=== PATIENT | female | born 1975 | race Caucasian/White ===

== ENCOUNTER 2017-11-02 10:51 | Emergency (ER) | payer MEDICAID ==
[~2017-11-02] VITALS: Ht 167.6 cm; Wt 93.7 kg
[~2017-11-02 10:51] MED LIST: FLO0.4C PO; HYDR-3965 PO; MACROBID PO; PENI500T2 PO; PHEN-873 PO
[2017-11-02 10:56] VITALS: BP 125/81
[2017-11-02] MEDS ORDERED: ondansetron 4mg rapidly disintigrating tab PO ONE (13:20)
[2017-11-02] MEDS ORDERED: HYDROcodone/acetaminophen 10/325mg tab PO ONE (13:20)
[2017-11-02] MEDS ORDERED: AMOX-580 PO (13:22)
[2017-11-02] MEDS ORDERED: CIPR10DR LEFT EAR (13:22)
== END 2017-11-02 13:40 | disposition home or self-care (01) ==
LOC: ER 10:52
DX: H60.502 Unspecified acute noninfective otitis externa, left ear (principal); H65.92 Unspecified nonsuppurative otitis media, left ear; G89.29 Other chronic pain; Z79.899 Other long term (current) drug therapy
CPT/HCPCS: 87070; 87077; 87186; 99284

== ENCOUNTER 2025-10-18 15:00 | Emergency (ER) | payer MEDICAID ==
[~2025-10-18] VITALS: Ht 162.6 cm; Wt 73.2 kg
[~2025-10-18 15:00] MED LIST changes: -FLO0.4C PO; +PHEN-786 PO; -PHEN-873 PO; +TAMS-55 PO
--- NOTE | 2025-10-18 16:15 | Physician Documentation ---
History of Present Illness Chief Complaint: Abdominal Pain Stated Complaint: UPPER ABD PAIN Primary Medical Doctor: none HPI This is a 50-year-old female who presents with three days of epigastric pain worse after eating without nausea, vomiting, diarrhea, or fever. Patient reports that she is on a GLP-1. Reports that she does not have her gallbladder and does not have her appendix. Patient reports no other acute symptoms or concerns. Medication Reconciliation Allergies: Coded Allergies: No Known Allergies (Unverified , 07/26/10) Scheduled Cephalexin*Monohydrate* (Keflex*), 1 CAP PO BID Nitrofurantoin/Nitrofuran Mac* (Macrobid*), 100 MG PO BID Penicillin V Potassium* (Penicillin VK*), 500 MG PO Q6H Phenazopyridine Hcl (Pyridium tablet), 2 TAB PO TID Tamsulosin Hcl* (Flomax*), 0.4 MG PO DAILY Scheduled PRN Hydrocodone Bit/Acetaminophen 5/325 MG ([place] 5/325 MG), 1 TAB PO Q4H PRN for moderate or severe pain Past Medical History Past Medical History: Arthritis, Chronic Back Pain, Anxiety Past Surgical History: appendectomy, cholecystectomy Alcohol Use: None Drug Use: none Lives with: Mother Lives In: Home Occupation: unemployed Review of Systems ROS As stated above in the HPI, otherwise all systems are reviewed and negative. Physical Exam Vital Signs: Temperature: 96.3, Source: Temporal, Heart Rate: 71, Respiratory Rate: 18, BP: 144/90, Pulse Oximetry: 98, Weight: 73.200 Oxygen Flow Rate: 0 Physical Exam VITALS: Reviewed and as above. GENERAL: Alert, nontoxic appearing, no apparent distress. HEENT: RESPIRATORY: No increased work of breathing, no respiratory distress, speaking in full clear sentences CHEST: CV: BACK: GI: MUSCULOSKELETAL: SKIN: NEURO: PSYCH: Progress Results/Orders Results/Orders Vital Signs 10/18/25 15:11 Temp 96.3 Pulse 71 Resp 18 B/P (MAP) 144/90 Pulse Ox 98 O2 Flow Rate 0 Medical Decision Making Additional information obtaine: N/A Findings MSE performed in triage and patient returned to ED lobby by nursing staff to aw ait available ED room. Examination history and diagnostic labs and imaging consistent with constipation without obvious obstruction and urinary tract infection likely responsible for suprapubic pain. We will begin outpatient antibiotic. Shared decision-making regarding MiraLax versus Mag citrate and daily Colace. Patient will continue with her medication assisted therapy and Re listor. Safely discharged in the emergency department. Differential Dx:Considerations: Bowel obstruction, Cholangitis, Cholelithasis, Constipation, Diverticular disease, Gastritis/PUD, Gastroenteritis, Inflammatory BD, Ischemic bowel, Pancreatitis, Urinary obstruction, Urinary tract infection, Urolithiasis Departure Disposition: HOME / SELF CARE / HOMELESS Impression: Primary Impression: Constipation Qualified Codes: K59.03 - Drug induced constipation Additional Impression: Acute urinary tract infection Condition: Improved Discharge Instructions: Constipation, Adult, [id number], Urinary Tract Infection, Adult Additional Instructions: Your lab are all reassuring, urinalysis is indicative of a mild urinary tract infection requiring antibiotics. Your x-ray imaging also consistent with con stipation. Please make follow up appointment with your primary care physician and continue all medications as directed and consider MiraLax and/or Mag citrate. Thank you for visiting [facility] has a happy holiday season. Referrals: NO PRIMARY CARE PROVIDER (PCP) Prescriptions Cephalexin*Monohydrate* (Keflex*) 500 Mg Capsule 1 CAP PO BID for 5 Days, #10 CAP Prov: SANTOS ANGEL PAC 10/18/25 Education Educated: Patient Educated regarding: diagnosis, treatment, prognosis, need for follow up Signature Scribe Signature: . Attestation: . PEDRO JIMENEZ SITE INSPECTOR Oct 18, 2025 16:15 SANTOS ANGEL PAC Oct 18, 2025 18:28
[2025-10-18 16:42] LABS: MEAN PLATELET VOLUME 6.4 FL (7.4-10.4); RED CELL DISTRIBUTION WIDTH 13.0 % (11.5-14.5)
[2025-10-18 17:08] LABS: CREATININE 0.83 MG/DL (0.40-0.90); TOTAL CARBON DIOXIDE 28.9 MMOL/L (24-32); eCRCL 69 ML/MIN; eGFR 72 ML/MIN
[2025-10-18 17:58] LABS: LEUKOCYTE ESTERASE ,URINE SMALL (Neg); NITRITES, URINE NEGATIVE (Neg); OCCULT BLOOD,URINE NEGATIVE (Neg)
[2025-10-18 18:06] LABS: UA COLLECTION TYPE CLN CATCH MIDSTREAM; URINE HCG NEGATIVE (NEG)
[2025-10-18 18:10] LABS: SQUAMOUS EPITHELIAL CELL,UR FEW /LPF (FEW)
[2025-10-18 18:11] LABS: RENAL CELLS, URINE FEW /HPF; STARCH,URINE MODERATE /HPF (NEGATIVE)
[2025-10-18] MEDS ORDERED: CEPH-585 PO (18:31)
[2025-10-18 18:37] VITALS: BP 150/92; PULSE 65; RESP 18; TEMP 98.6; O2SAT 99
--- NOTE | 2025-10-18 19:10 | RADIOLOGY REPORT ---
EXAM: DI ABDOMEN,SINGLE VIEW(KUB) INDICATION: COnstipation COMPARISON: None TECHNIQUE: Three radiograph of the abdomen. FINDINGS: Nonobstructive bowel gas pattern noted. Large volume colonic stool burden . S/p cholecystectomy. There is no definite evidence for pneumoperitoneum. No abnormal calcifications noted. IMPRESSION: Large colonic stool burden.
== END 2025-10-18 18:38 | disposition home or self-care (01) ==
LOC: ER 15:00
DX: N39.0 Urinary tract infection, site not specified (principal); K59.00 Constipation, unspecified; M19.90 Unspecified osteoarthritis, unspecified site; G89.29 Other chronic pain; F41.9 Anxiety disorder, unspecified; Z90.49 Acquired absence of other specified parts of digestive tract; Z56.0 Unemployment, unspecified; Z79.899 Other long term (current) drug therapy
CPT/HCPCS: 36415; 74018; 80053; 81001; 81025; 83690; 85025; 87088; 99284